=== PATIENT | female | born 1945 | race Caucasian/White ===

== ENCOUNTER 2018-04-01 10:22 | Emergency (ER) | payer MEDICARE, OTHER | END 2018-04-01 12:07 | disposition home or self-care (01) | LOC: E/R 10:22 | DX: S83.92XA Sprain of unspecified site of left knee, initial encounter (principal); I10 Essential (primary) hypertension; W01.198A Fall on same level from slipping, tripping and stumbling with subsequent striking against other object, initial encounter; Y92.000 Kitchen of unspecified non-institutional (private) residence as the place of occurrence of the external cause; Z79.82 Long term (current) use of aspirin | CPT/HCPCS: 73562; 99283-25 ==